=== PATIENT | male | born 1965 | race Caucasian/White ===

== ENCOUNTER 2018-10-21 12:44 | Emergency (ER) | payer OTHER ==
[~2018-10-21] VITALS: Ht 175.3 cm; Wt 113.4 kg
== END 2018-10-21 13:35 | disposition home or self-care (01) ==
LOC: ED 12:44
DX: R05 Cough (principal)

== ENCOUNTER 2024-12-20 21:30 | Emergency (ER) | payer OTHER ==
[~2024-12-20] VITALS: Ht 175.3 cm; Wt 98.5 kg
[2024-12-20] MEDS ORDERED: LANTUS SOL100 UNIT/1 SUB-Q (21:48)
[2024-12-20] MEDS ORDERED: INSULIN GL100 UNIT/2 SQ (21:48)
[2024-12-20] MEDS ORDERED: INSULIN LI100 UNIT/2 SQ (21:48)
[2024-12-20 21:51] LABS: BASOPHILS 0.3 % (0.2-1.2); EOSINOPHILS 1.5 % (0.8-7.0); HEMATOCRIT 42.5 % (40.1-51.0); LYMPHOCYTES 23.2 % (21.8-53.1); MCH 32.1 PG (25.7-32.2); MCHC 32.9 g/dL (32.3-36.5); MCV 97.5 fL (79.0-92.2); MONOCYTES 10.2 % (5.3-12.2); NEUTROPHILS 64.6 % (34.0-67.9); PLATELET COUNT 144 K/uL (163-337); RBC 4.36 M/uL (4.63-6.08)
[2024-12-20 22:16] LABS: BILIRUBIN, URINE NEGATIVE (negative); BLOOD/HGB, URINE SMALL (Negative); KETONE, URINE NEGATIVE (Negative); LEUK ESTERASE, URINE NEGATIVE (negative); NITRITE, URINE NEGATIVE (negative); PH, URINE 7.5 (5-7)
[2024-12-20 22:19] LABS: ALBUMIN 1.7 g/dL (3.4-5.0); ALBUMIN/GLOBULIN RATIO 0.43 (1.1-2.4); ANION GAP 5.7 (7-21); BILIRUBIN, TOTAL 0.3 mg/dL (0.2-1.0); BUN/CREATININE RATIO 13.04 (6.0-28.6); CALCIUM 8.4 mg/dL (8.5-10.1); CREATININE, SERUM 0.69 mg/dL (0.70-1.30); POTASSIUM 3.7 mmol/L (3.5-5.1); PROTEIN, TOTAL 5.7 g/dL (6.4-8.2)
[2024-12-20 22:25] LABS: BACTERIA, URINE RARE /hpf (negative); CASTS, URINE HYALINE 1+ \\lpf; COLLECTION TYPE, URINE CLEAN CATCH; CRYSTALS, URINE NONE SEEN (0-1+); EPITHELIAL CELLS, URINE SQUAMOUS 1+ /lpf (0-1+); REFLEX CULTURE, URINE No (No)
[2024-12-20] MEDS ORDERED: FUROSEMIDE 40 MG/4 ML VIAL IV ONE (22:30)
[2024-12-20] MEDS ORDERED: LASIX20 MG PO (22:40)
[2024-12-20 23:11] VITALS: BP 154/96
== END 2024-12-20 23:11 | disposition home or self-care (01) ==
LOC: ED 21:30
PROVIDERS: Family Medicine
DX: E88.09 Other disorders of plasma-protein metabolism, not elsewhere classified (principal); K73.9 Chronic hepatitis, unspecified; R60.9 Edema, unspecified; E11.9 Type 2 diabetes mellitus without complications; I11.0 Hypertensive heart disease with heart failure; I50.9 Heart failure, unspecified; F17.200 Nicotine dependence, unspecified, uncomplicated; Z79.4 Long term (current) use of insulin; Z88.8 Allergy status to other drugs, medicaments and biological substances
CPT/HCPCS: 36415; 71045; 80053; 81001; 83690; 83880; 85025; 96374; 99284-25; J1938